=== PATIENT | female | born 1985 | race Two or more races ===

== ENCOUNTER 2016-12-10 12:20 | Emergency (ER) | payer MEDICAID, OTHER, SELFPAY ==
[~2016-12-10] VITALS: Ht 157.5 cm; Wt 58.7 kg
[~2016-12-10 12:20] MED LIST: ALPR0.254 PO; AMOX-367 PO; CHLO473M MM; GABA-826 PO; HYDR-3240 PO; MAGN400T26 PO; MIRT15TA6 PO; OMEP-110 PO; ONDA4TAB10 PO; OXYC10TA32 PO; OXYC5TAB3 PO; PHOS250T3 PO; PROC10TA78 PO; PROC25SU25 PR; SERT50TA5 PO; VANC125C2 PO; oxycontin PO
[2016-12-10] MEDS ORDERED: SODIUM CHLORIDE 0.9% 1,000 ML IV ONE (12:48)
[2016-12-10] MEDS ORDERED: ONDANSETRON 2MG/ML, 2ML ONE (12:54)
[2016-12-10] MEDS ORDERED: MORPHINE SULFATE 4 MG/ML, 1ML ONE ×2 (12:54→13:22)
[2016-12-10] MEDS: MORPHINE SULFATE 4 MG/ML, 1ML IVPush PRN ×2 (12:57→13:24)
[2016-12-10] MEDS ORDERED: ONDANSETRON 2MG/ML, 2ML IVPush ONE (13:00)
[2016-12-10] MEDS ORDERED: SODIUM CHLORIDE FLUSH 10ML SYR IVF ONE (13:00)
[2016-12-10] MEDS ORDERED: SODIUM CHLORIDE 0.9% 1,000ML IVBOLUS ONE (13:00)
[2016-12-10 13:13] LABS: PATH.CAST-FLAG NOT PRESENT; SPERM-FLAG NOT PRESENT; SRC-FLAG NOT PRESENT; XTAL-FLAG NOT PRESENT; YLC-FLAG NOT PRESENT
[2016-12-10 13:21] LABS: HEMATOCRIT 36.2 % (34.6-47.8); HEMOGLOBIN 11.6 g/dL (11.7-16.4); WHITE BLOOD COUNT 6.4 x10^3/uL (3.4-10)
[2016-12-10] MEDS ORDERED: chemo (13:26)
[2016-12-10 13:33] LABS: BLOOD UREA NITROGEN 4 mg/dL (7-18)
[2016-12-10 13:41] LABS: ASPARTATE AMINO TRANSFERASE 17 U/L (15-37)
[2016-12-10] MEDS ORDERED: OMNIPAQUE 350 MG/ML, 100ML BOTTLE ONE (14:13)
[2016-12-10] MEDS ORDERED: HYDROmorphone 1 MG/ML, 1ML ONE (14:48)
[2016-12-10] MEDS ORDERED: HYDROmorphone 1 MG/ML, 1ML IVPush PRN (15:00)
[2016-12-10 15:21] VITALS: BP 114/82
== END 2016-12-10 15:23 | disposition home or self-care (01) ==
LOC: ED 13:48
DX: N83.202 Unspecified ovarian cyst, left side (principal); C91.01 Acute lymphoblastic leukemia, in remission; K20.9 Esophagitis, unspecified; D69.6 Thrombocytopenia, unspecified
CPT/HCPCS: 36415; 74177; 80053; 81001; 82010; 83605; 83690; 84703; 85025; 85610; 85730; 87040; 87086; 96374; 96375; 99285; J1170; J2405; J7030; Q9967

== ENCOUNTER 2016-12-15 09:19 | Inpatient (IN) | payer MEDICAID, OTHER ==
[~2016-12-15] VITALS: Ht 157.5 cm; Wt 58.8 kg
[~2016-12-15 09:19] MED LIST changes: -OXYC10TA32 PO; +OXYC10TA47 PO; +chemo
[2016-12-15] MEDS ORDERED: SODIUM CHLORIDE 0.9% 1,000 ML IV ONE ×2 (10:18→11:40)
[2016-12-15] MEDS ORDERED: SODIUM CHLORIDE 0.9% 1,000ML IVBOLUS ONE (10:30)
[2016-12-15] MEDS ORDERED: ONDANSETRON 2MG/ML, 2ML IVPush ONE (10:30)
[2016-12-15] MEDS ORDERED: SODIUM CHLORIDE FLUSH 10ML SYR IVF ONE (10:30)
[2016-12-15] MEDS ORDERED: DIPHENHYDRAMINE 50 MG/ML, 1ML IVPush ONE (10:30)
[2016-12-15] MEDS ORDERED: HYDROmorphone 1 MG/ML, 1ML ONE ×3 (10:31→13:33)
[2016-12-15] MEDS ORDERED: DIPHENHYDRAMINE 50 MG/ML, 1ML ONE (10:32)
[2016-12-15] MEDS ORDERED: ONDANSETRON 2MG/ML, 2ML ONE (10:32)
[2016-12-15] MEDS: HYDROmorphone 1 MG/ML, 1ML IVPush PRN ×2 (10:40→11:16)
[2016-12-15 10:42] LABS: HEMATOCRIT 40.6 % (34.6-47.8); HEMOGLOBIN 13.2 g/dL (11.7-16.4); WHITE BLOOD COUNT 8.1 x10^3/uL (3.4-10)
[2016-12-15 10:54] LABS: ASPARTATE AMINO TRANSFERASE 19 U/L (15-37); BLOOD UREA NITROGEN 10 mg/dL (7-18)
[2016-12-15 10:58] LABS: DIFF TOTAL CELLS COUNTED 100 CELL DIFF
[2016-12-15 11:31] LABS: VERIFY COUNTS? YES
[2016-12-15 11:32] LABS: ANISOCYTOSIS 1+; POLYCHROMASIA 1+
[2016-12-15] MEDS ORDERED: SODIUM CHLORIDE FLUSH 10ML SYR IVF PRN (12:00)
[2016-12-15] MEDS ORDERED: DOCUSATE 100 MG CAPSULE PO PRN (13:00)
[2016-12-15] MEDS ORDERED: ACETAMINOPHEN 325 MG TABLET PO PRN (13:00)
[2016-12-15] MEDS ORDERED: PROMETHAZINE 12.5 MG SUPP PR PRN (13:00)
[2016-12-15] MEDS ORDERED: LORazepam 2 MG/ML, 1ML IVPush PRN (13:00)
[2016-12-15] MEDS ORDERED: ONDANSETRON 2MG/ML, 2ML IVPush PRN (13:00)
[2016-12-15] MEDS ORDERED: ONDANSETRON ODT 4 MG PO PRN (13:00)
[2016-12-15] MEDS: HYDROmorphone 2 MG/ML, 1ML IVPush PRN ×4 (13:34→23:48)
[2016-12-15] MEDS ORDERED: OMNIPAQUE 350 MG/ML, 75ML BOTTLE ONE (13:57)
[2016-12-15] MEDS: SODIUM CHLORIDE 0.9% 1,000 ML IV SCH ×2 (15:55→23:48)
[2016-12-15] MEDS: ENOXAPARIN 40 MG/0.4 ML SQ SCH (17:33)
[2016-12-15 17:41] VITALS: BP 110/71
[2016-12-15] MEDS: DIPHENHYDRAMINE 50 MG/ML, 1ML IVPush PRN (18:17)
[2016-12-15 19:43] VITALS: BP 114/57
[2016-12-16] MEDS: DIPHENHYDRAMINE 50 MG/ML, 1ML IVPush PRN (00:51)
[2016-12-16] MEDS: HYDROmorphone 2 MG/ML, 1ML IVPush PRN ×2 (02:57→06:28)
[2016-12-16 02:59] VITALS: BP 113/76
[2016-12-16 04:36] LABS: ASPARTATE AMINO TRANSFERASE 20 U/L (15-37); BLOOD UREA NITROGEN 5 mg/dL (7-18)
[2016-12-16 04:43] LABS: HEMATOCRIT 32.5 % (34.6-47.8); HEMOGLOBIN 10.5 g/dL (11.7-16.4); WHITE BLOOD COUNT 6.8 x10^3/uL (3.4-10)
[2016-12-16 05:40] LABS: DIFF TOTAL CELLS COUNTED 100 CELL DIFF
[2016-12-16 05:44] LABS: VERIFY COUNTS? YES
[2016-12-16 05:45] LABS: ANISOCYTOSIS 1+; POLYCHROMASIA 1+
[2016-12-16] MEDS: SODIUM CHLORIDE 0.9% 1,000 ML IV SCH (06:28)
[2016-12-16 07:58] VITALS: BP 122/66
[2016-12-16] MEDS: D5%-0.45% NACL 1,000 ML IV SCH ×3 (09:45→20:26)
[2016-12-16] MEDS: DIPHENHYDRAMINE 12.5MG/5ML, 10ML UDC PO PRN ×2 (09:45→17:17)
[2016-12-16] MEDS: OXYcodone IR 5MG TABLET PO PRN ×2 (10:46→21:48)
[2016-12-16] MEDS ORDERED: LIDOCAINE 1%, 20ML ONE (12:31)
[2016-12-16] MEDS: ENOXAPARIN 40 MG/0.4 ML SQ SCH (13:00)
[2016-12-16] MEDS ORDERED: VISIPAQUE 270 MG/ML, 50ML BOTTLE ONE (13:40)
[2016-12-16 15:35] VITALS: BP 110/63
[2016-12-16] MEDS: HYDROmorphone 1 MG/ML, 1ML IVPush PRN ×2 (15:39→20:26)
[2016-12-16 19:25] VITALS: BP 103/67
[2016-12-17] MEDS: HYDROmorphone 1 MG/ML, 1ML IVPush PRN ×6 (00:15→22:02)
[2016-12-17 05:17] VITALS: BP 128/84
[2016-12-17] MEDS: D5%-0.45% NACL 1,000 ML IV SCH ×2 (05:21→13:25)
[2016-12-17 05:48] LABS: HEMATOCRIT 33.3 % (34.6-47.8); HEMOGLOBIN 11.1 g/dL (11.7-16.4); WHITE BLOOD COUNT 8.9 x10^3/uL (3.4-10)
[2016-12-17 05:55] LABS: BLOOD UREA NITROGEN 3 mg/dL (7-18)
[2016-12-17 06:57] LABS: DIFF TOTAL CELLS COUNTED 100 CELL DIFF
[2016-12-17 07:03] LABS: ANISOCYTOSIS 1+; POLYCHROMASIA 1+; VERIFY COUNTS? YES
[2016-12-17 07:04] LABS: POIKILOCYTOSIS 1+
[2016-12-17 07:15] VITALS: BP 95/65
[2016-12-17] MEDS ORDERED: POTASSIUM CHLORIDE 40 MEQ in SODIUM CHLORIDE 0.9% 500 ML IV ONE (10:00)
[2016-12-17] MEDS: OXYcodone IR 5MG TABLET PO PRN ×2 (10:31→20:18)
[2016-12-17] MEDS: ENOXAPARIN 40 MG/0.4 ML SQ SCH (13:25)
[2016-12-17 13:31] VITALS: BP 122/62
[2016-12-17] MEDS ORDERED: DIPHENHYDRAMINE 50 MG/ML, 1ML ONE (16:18)
[2016-12-17] MEDS: DIPHENHYDRAMINE 12.5MG/5ML, 10ML UDC PO PRN (16:23)
[2016-12-17 20:17] VITALS: BP 138/83
[2016-12-17] MEDS: DIPHENHYDRAMINE 50 MG/ML, 1ML IVPush PRN (23:40)
[2016-12-18 02:31] VITALS: BP 99/56
[2016-12-18] MEDS: HYDROmorphone 1 MG/ML, 1ML IVPush PRN ×5 (02:35→22:16)
[2016-12-18] MEDS: D5%-0.45% NACL 1,000 ML IV SCH ×4 (02:35→22:54)
[2016-12-18 02:54] LABS: HEMATOCRIT 33.1 % (34.6-47.8); HEMOGLOBIN 10.7 g/dL (11.7-16.4); WHITE BLOOD COUNT 11.4 x10^3/uL (3.4-10)
[2016-12-18 03:05] LABS: BLOOD UREA NITROGEN 5 mg/dL (7-18)
[2016-12-18 03:31] LABS: DIFF TOTAL CELLS COUNTED 100 CELL DIFF
[2016-12-18 03:41] LABS: ANISOCYTOSIS 1+; VERIFY COUNTS? YES
[2016-12-18 03:42] LABS: POLYCHROMASIA 1+
[2016-12-18] MEDS: DIPHENHYDRAMINE 50 MG/ML, 1ML IVPush PRN ×3 (06:28→21:16)
[2016-12-18 07:48] VITALS: BP 110/76
[2016-12-18] MEDS: OXYcodone IR 5MG TABLET PO PRN (09:03)
[2016-12-18] MEDS ORDERED: POTASSIUM CHLORIDE 40 MEQ in SODIUM CHLORIDE 0.9% 500 ML IV ONE (10:30)
[2016-12-18] MEDS: ENOXAPARIN 40 MG/0.4 ML SQ SCH (13:21)
[2016-12-18] MEDS ORDERED: ONDANSETRON ODT 4 MG PO PRN (14:30)
[2016-12-18] MEDS ORDERED: DOCUSATE 100 MG CAPSULE PO PRN (14:30)
[2016-12-18] MEDS ORDERED: ACETAMINOPHEN 325 MG TABLET PO PRN (14:30)
[2016-12-18] MEDS ORDERED: ONDANSETRON 2MG/ML, 2ML IVPush PRN (14:30)
[2016-12-18 15:00] VITALS: BP 109/74
[2016-12-18 19:05] VITALS: BP 118/74
[2016-12-19 01:17] VITALS: BP 102/64
[2016-12-19] MEDS: HYDROmorphone 1 MG/ML, 1ML IVPush PRN ×6 (02:07→22:01)
[2016-12-19] MEDS: DIPHENHYDRAMINE 50 MG/ML, 1ML IVPush PRN ×3 (04:03→18:42)
[2016-12-19 04:38] LABS: HEMATOCRIT 33.5 % (34.6-47.8); WHITE BLOOD COUNT 17.6 x10^3/uL (3.4-10)
[2016-12-19 04:47] LABS: BLOOD UREA NITROGEN 3 mg/dL (7-18)
[2016-12-19 05:38] LABS: DIFF TOTAL CELLS COUNTED 100 CELL DIFF
[2016-12-19 05:45] LABS: ANISOCYTOSIS 1+; POLYCHROMASIA 1+; VERIFY COUNTS? YES
[2016-12-19 07:04] VITALS: BP 106/70
[2016-12-19 08:14] LABS: ASPARTATE AMINO TRANSFERASE 33 U/L (15-37)
[2016-12-19] MEDS: D5%-0.45% NACL 1,000 ML IV SCH ×2 (08:48→18:43)
[2016-12-19] MEDS: ENOXAPARIN 40 MG/0.4 ML SQ SCH (13:30)
[2016-12-19 13:43] VITALS: BP 114/83
[2016-12-19] MEDS: HYDROXYUREA 500 MG CAPSULE PO SCH ×2 (14:33→23:13)
[2016-12-19] MEDS: OXYcodone IR 5MG TABLET PO PRN (14:59)
[2016-12-19 19:46] VITALS: BP 119/74
[2016-12-20] MEDS: DIPHENHYDRAMINE 50 MG/ML, 1ML IVPush PRN ×4 (00:42→19:44)
[2016-12-20 01:20] VITALS: BP 122/81
[2016-12-20] MEDS: HYDROmorphone 1 MG/ML, 1ML IVPush PRN ×6 (02:13→22:53)
[2016-12-20] MEDS: D5%-0.45% NACL 1,000 ML IV SCH ×3 (02:15→22:56)
[2016-12-20 02:36] LABS: BLOOD UREA NITROGEN 12 mg/dL (7-18)
[2016-12-20 02:39] LABS: ASPARTATE AMINO TRANSFERASE 28 U/L (15-37)
[2016-12-20 03:39] LABS: HEMATOCRIT 32.9 % (34.6-47.8); HEMOGLOBIN 10.7 g/dL (11.7-16.4); WHITE BLOOD COUNT 28.3 x10^3/uL (3.4-10)
[2016-12-20] MEDS: OXYcodone IR 5MG TABLET PO PRN ×3 (03:47→16:34)
[2016-12-20 04:01] LABS: DIFF TOTAL CELLS COUNTED 100 CELL DIFF
[2016-12-20 04:03] LABS: ANISOCYTOSIS 1+; POLYCHROMASIA 1+
[2016-12-20 06:00] LABS: VERIFY COUNTS? YES
[2016-12-20 07:00] VITALS: BP 130/86
[2016-12-20] MEDS ORDERED: LIDOCAINE 1%, 20ML ONE (08:21)
[2016-12-20] MEDS ORDERED: MIDAZOLAM 1 MG/ML, 5ML ONE ×2 (08:39→08:43)
[2016-12-20] MEDS ORDERED: FENTANYL PF 100 MCG/2ML ONE ×2 (08:39→08:43)
[2016-12-20] MEDS: HYDROXYUREA 500 MG CAPSULE PO SCH ×2 (11:00→21:07)
[2016-12-20 12:50] VITALS: BP 116/80
[2016-12-20] MEDS: ENOXAPARIN 40 MG/0.4 ML SQ SCH (13:06)
[2016-12-20] MEDS ORDERED: CYCLOBENZAPRINE 10 MG TABLET PO PRN (16:00)
[2016-12-20 19:27] VITALS: BP 132/81
[2016-12-21] MEDS: DIPHENHYDRAMINE 50 MG/ML, 1ML IVPush PRN ×4 (01:52→20:58)
[2016-12-21 01:54] VITALS: BP 121/81
[2016-12-21] MEDS: HYDROmorphone 1 MG/ML, 1ML IVPush PRN ×5 (04:22→21:48)
[2016-12-21 04:32] LABS: HEMATOCRIT 33.5 % (34.6-47.8); HEMOGLOBIN 10.9 g/dL (11.7-16.4)
[2016-12-21 04:40] LABS: ASPARTATE AMINO TRANSFERASE 23 U/L (15-37); BLOOD UREA NITROGEN 9 mg/dL (7-18)
[2016-12-21 04:58] LABS: DIFF TOTAL CELLS COUNTED 100 CELL DIFF
[2016-12-21 05:11] LABS: ANISOCYTOSIS 1+; HYPOCHROMIA 1+; POLYCHROMASIA 1+
[2016-12-21] MEDS: OXYcodone IR 5MG TABLET PO PRN ×3 (05:24→19:35)
[2016-12-21 05:41] LABS: VERIFY COUNTS? YES
[2016-12-21 07:04] VITALS: BP 113/76
[2016-12-21] MEDS: D5%-0.45% NACL 1,000 ML IV SCH ×2 (09:26→19:35)
[2016-12-21] MEDS: HYDROXYUREA 500 MG CAPSULE PO SCH ×3 (09:29→20:58)
[2016-12-21 13:17] VITALS: BP 113/69
[2016-12-21] MEDS: ENOXAPARIN 40 MG/0.4 ML SQ SCH (14:33)
[2016-12-21] MEDS ORDERED: HYDROXYUREA 500 MG CAPSULE PO SCH (16:00)
[2016-12-21 18:53] VITALS: BP 126/73
[2016-12-22 01:19] VITALS: BP 130/85
[2016-12-22] MEDS: HYDROmorphone 1 MG/ML, 1ML IVPush PRN ×6 (01:27→22:37)
[2016-12-22] MEDS: DIPHENHYDRAMINE 50 MG/ML, 1ML IVPush PRN ×4 (03:01→21:01)
[2016-12-22 03:14] LABS: HEMATOCRIT 33.1 % (34.6-47.8); HEMOGLOBIN 10.8 g/dL (11.7-16.4); WHITE BLOOD COUNT 36.4 x10^3/uL (3.4-10)
[2016-12-22 03:57] LABS: DIFF TOTAL CELLS COUNTED 100 CELL DIFF
[2016-12-22 04:00] LABS: ANISOCYTOSIS 1+; VERIFY COUNTS? YES
[2016-12-22 04:01] LABS: POLYCHROMASIA 1+
[2016-12-22] MEDS: D5%-0.45% NACL 1,000 ML IV SCH ×3 (04:50→21:53)
[2016-12-22 08:17] VITALS: BP 128/82
[2016-12-22] MEDS: HYDROXYUREA 500 MG CAPSULE PO SCH ×3 (08:18→21:37)
[2016-12-22] MEDS: OXYcodone IR 5MG TABLET PO PRN ×3 (08:19→21:53)
[2016-12-22] MEDS: ENOXAPARIN 40 MG/0.4 ML SQ SCH (13:06)
[2016-12-22 13:08] VITALS: BP 106/69
[2016-12-22 13:52] LABS: BLOOD UREA NITROGEN 11 mg/dL (7-18)
[2016-12-22 13:56] LABS: ASPARTATE AMINO TRANSFERASE 19 U/L (15-37)
[2016-12-22 18:33] VITALS: BP 119/77
[2016-12-23 02:24] VITALS: BP 136/90
[2016-12-23] MEDS: DIPHENHYDRAMINE 50 MG/ML, 1ML IVPush PRN ×4 (02:26→22:12)
[2016-12-23] MEDS: OXYcodone IR 5MG TABLET PO PRN ×3 (02:27→22:12)
[2016-12-23] MEDS: HYDROmorphone 1 MG/ML, 1ML IVPush PRN ×5 (03:33→19:59)
[2016-12-23 03:47] LABS: HEMATOCRIT 28.7 % (34.6-47.8); HEMOGLOBIN 9.3 g/dL (11.7-16.4); WHITE BLOOD COUNT 23.8 x10^3/uL (3.4-10)
[2016-12-23 04:21] LABS: DIFF TOTAL CELLS COUNTED 100 CELL DIFF
[2016-12-23 04:27] LABS: ANISOCYTOSIS 1+; VERIFY COUNTS? YES
[2016-12-23 04:28] LABS: POLYCHROMASIA 1+
[2016-12-23 04:29] LABS: OVALOCYTES 1+
[2016-12-23 05:31] LABS: BLOOD UREA NITROGEN 9 mg/dL (7-18)
[2016-12-23 05:32] LABS: ASPARTATE AMINO TRANSFERASE 18 U/L (15-37)
[2016-12-23 07:57] VITALS: BP 124/83
[2016-12-23] MEDS: D5%-0.45% NACL 1,000 ML IV SCH (08:00)
[2016-12-23] MEDS ORDERED: POTASSIUM CHLORIDE 40 MEQ in SODIUM CHLORIDE 0.9% 500 ML IV ONE (09:30)
[2016-12-23] MEDS: HYDROXYUREA 500 MG CAPSULE PO SCH ×3 (09:49→22:28)
[2016-12-23] MEDS: ENOXAPARIN 40 MG/0.4 ML SQ SCH (12:30)
[2016-12-23 14:00] VITALS: BP 119/83
[2016-12-23 19:01] VITALS: BP 115/74
[2016-12-24 01:00] VITALS: BP 125/74
[2016-12-24] MEDS: HYDROmorphone 1 MG/ML, 1ML IVPush PRN ×5 (01:08→20:06)
[2016-12-24] MEDS: DIPHENHYDRAMINE 50 MG/ML, 1ML IVPush PRN ×4 (04:00→23:27)
[2016-12-24 04:25] LABS: HEMATOCRIT 31.6 % (34.6-47.8); HEMOGLOBIN 10.5 g/dL (11.7-16.4); WHITE BLOOD COUNT 13.8 x10^3/uL (3.4-10)
[2016-12-24 04:34] LABS: BLOOD UREA NITROGEN 10 mg/dL (7-18)
[2016-12-24 04:37] LABS: ASPARTATE AMINO TRANSFERASE 21 U/L (15-37)
[2016-12-24 05:38] LABS: DIFF TOTAL CELLS COUNTED 100 CELL DIFF
[2016-12-24 06:33] LABS: ANISOCYTOSIS 1+; POLYCHROMASIA 1+; VERIFY COUNTS? YES
[2016-12-24 06:34] LABS: HYPOCHROMIA 1+
[2016-12-24 08:15] VITALS: BP 113/73
[2016-12-24] MEDS: HYDROXYUREA 500 MG CAPSULE PO SCH ×3 (08:27→20:52)
[2016-12-24] MEDS: ENOXAPARIN 40 MG/0.4 ML SQ SCH (13:12)
[2016-12-24 13:15] VITALS: BP 116/77
[2016-12-24 18:43] VITALS: BP 105/69
[2016-12-25 00:56] VITALS: BP 116/84
[2016-12-25] MEDS: HYDROmorphone 1 MG/ML, 1ML IVPush PRN ×6 (01:02→22:01)
[2016-12-25] MEDS: OXYcodone IR 5MG TABLET PO PRN (04:21)
[2016-12-25 04:41] LABS: ASPARTATE AMINO TRANSFERASE 23 U/L (15-37); BLOOD UREA NITROGEN 24 mg/dL (7-18)
[2016-12-25 04:50] LABS: HEMATOCRIT 35.7 % (34.6-47.8); HEMOGLOBIN 11.8 g/dL (11.7-16.4); WHITE BLOOD COUNT 9.5 x10^3/uL (3.4-10)
[2016-12-25 05:53] LABS: DIFF TOTAL CELLS COUNTED 100 CELL DIFF
[2016-12-25 05:56] LABS: ANISOCYTOSIS 1+; POLYCHROMASIA 1+; VERIFY COUNTS? YES
[2016-12-25 07:21] VITALS: BP 92/59
[2016-12-25] MEDS: HYDROXYUREA 500 MG CAPSULE PO SCH ×3 (09:17→21:55)
[2016-12-25] MEDS: DIPHENHYDRAMINE 50 MG/ML, 1ML IVPush PRN ×2 (11:56→19:51)
[2016-12-25 13:31] VITALS: BP 95/63
[2016-12-25] MEDS: ENOXAPARIN 40 MG/0.4 ML SQ SCH (13:58)
[2016-12-25] MEDS ORDERED: DOCUSATE 100 MG CAPSULE PO PRN (19:00)
[2016-12-25] MEDS ORDERED: DIPHENHYDRAMINE 12.5MG/5ML, 10ML UDC PO PRN (19:00)
[2016-12-25] MEDS ORDERED: ONDANSETRON ODT 4 MG PO PRN (19:00)
[2016-12-25] MEDS ORDERED: ONDANSETRON 2MG/ML, 2ML IVPush PRN (19:00)
[2016-12-25] MEDS ORDERED: ACETAMINOPHEN 325 MG TABLET PO PRN (19:00)
[2016-12-25 19:21] VITALS: BP 113/78
[2016-12-26 00:31] VITALS: BP 102/68
[2016-12-26] MEDS: OXYcodone IR 5MG TABLET PO PRN ×3 (00:40→19:59)
[2016-12-26] MEDS: HYDROmorphone 1 MG/ML, 1ML IVPush PRN ×4 (03:43→21:57)
[2016-12-26 04:13] LABS: HEMATOCRIT 35.9 % (34.6-47.8); HEMOGLOBIN 11.7 g/dL (11.7-16.4); WHITE BLOOD COUNT 5.3 x10^3/uL (3.4-10)
[2016-12-26 04:20] LABS: BLOOD UREA NITROGEN 17 mg/dL (7-18)
[2016-12-26 04:23] LABS: ASPARTATE AMINO TRANSFERASE 18 U/L (15-37)
[2016-12-26 05:44] LABS: DIFF TOTAL CELLS COUNTED 100 CELL DIFF
[2016-12-26 05:47] LABS: ANISOCYTOSIS 1+; POLYCHROMASIA 1+; VERIFY COUNTS? YES
[2016-12-26 07:33] VITALS: BP 93/57
[2016-12-26] MEDS: HYDROXYUREA 500 MG CAPSULE PO SCH ×2 (08:47→17:53)
[2016-12-26] MEDS: FAMOTIDINE 20 MG TABLET PO SCH ×2 (08:48→19:59)
[2016-12-26] MEDS: ENOXAPARIN 40 MG/0.4 ML SQ SCH (12:27)
[2016-12-26 13:12] VITALS: BP 125/74
[2016-12-26 19:08] VITALS: BP 98/67
[2016-12-27 03:12] VITALS: BP 103/69
[2016-12-27] MEDS: HYDROmorphone 1 MG/ML, 1ML IVPush PRN ×5 (03:27→21:24)
[2016-12-27 03:46] LABS: HEMATOCRIT 34.6 % (34.6-47.8); HEMOGLOBIN 11.4 g/dL (11.7-16.4); WHITE BLOOD COUNT 3.8 x10^3/uL (3.4-10)
[2016-12-27 03:54] LABS: ASPARTATE AMINO TRANSFERASE 20 U/L (15-37); BLOOD UREA NITROGEN 20 mg/dL (7-18)
[2016-12-27 04:02] LABS: DIFF TOTAL CELLS COUNTED 100 CELL DIFF
[2016-12-27 04:14] LABS: VERIFY COUNTS? YES
[2016-12-27 04:15] LABS: ANISOCYTOSIS 1+; POLYCHROMASIA 1+
[2016-12-27 04:16] LABS: OVALOCYTES 1+
[2016-12-27 07:24] VITALS: BP 96/61
[2016-12-27] MEDS: FAMOTIDINE 20 MG TABLET PO SCH ×2 (08:23→21:24)
[2016-12-27] MEDS: HYDROXYUREA 500 MG CAPSULE PO SCH ×2 (08:23→10:44)
[2016-12-27] MEDS: OXYcodone IR 5MG TABLET PO PRN ×2 (11:06→22:19)
[2016-12-27] MEDS: ENOXAPARIN 40 MG/0.4 ML SQ SCH (12:51)
[2016-12-27 13:27] VITALS: BP 123/72
[2016-12-27 19:21] VITALS: BP 114/69
[2016-12-28 08:19] LABS: ASPARTATE AMINO TRANSFERASE 18 U/L (15-37); BLOOD UREA NITROGEN 14 mg/dL (7-18)
[2016-12-28 08:24] LABS: HEMATOCRIT 33.8 % (34.6-47.8); HEMOGLOBIN 11.2 g/dL (11.7-16.4); WHITE BLOOD COUNT 5.4 x10^3/uL (3.4-10)
[2016-12-28] MEDS: FAMOTIDINE 20 MG TABLET PO SCH ×2 (08:30→21:13)
[2016-12-28] MEDS: HYDROXYUREA 500 MG CAPSULE PO SCH ×2 (09:00→14:04)
[2016-12-28] MEDS: HYDROmorphone 1 MG/ML, 1ML IVPush PRN ×4 (09:37→23:09)
[2016-12-28 10:25] LABS: DIFF TOTAL CELLS COUNTED 100 CELL DIFF
[2016-12-28] MEDS: OXYcodone IR 5MG TABLET PO PRN ×2 (12:52→21:13)
[2016-12-28] MEDS: ENOXAPARIN 40 MG/0.4 ML SQ SCH (12:52)
[2016-12-28] MEDS: SODIUM CHLORIDE 0.9% 1,000 ML IV SCH ×2 (13:53→21:14)
[2016-12-28 14:03] VITALS: BP 99/61
[2016-12-28 14:20] LABS: ANISOCYTOSIS 1+; OVALOCYTES 1+; VERIFY COUNTS? YES
[2016-12-28] MEDS ORDERED: ONDANSETRON 2MG/ML, 2ML IV ONE (15:30)
[2016-12-28] MEDS ORDERED: [UNRECOGNIZED DRUG - OTHER] IV ONE (16:00)
[2016-12-28] MEDS ORDERED: SODIUM CHLORIDE 0.9% IV ONE (16:00)
[2016-12-28] MEDS: ALLOPURINOL 300 MG TABLET PO SCH (16:24)
[2016-12-28 20:00] VITALS: BP 112/70
[2016-12-28] MEDS ORDERED: FLUCONAZOLE 100 MG TABLET PO SCH (21:00)
[2016-12-28] MEDS ORDERED: LEVOFLOXACIN 500 MG TABLET PO SCH (21:00)
[2016-12-28] MEDS: ACYCLOVIR 200 MG CAPSULE PO SCH (21:14)
[2016-12-29 03:00] VITALS: BP 115/66
[2016-12-29] MEDS: SODIUM CHLORIDE 0.9% 1,000 ML IV SCH (05:07)
[2016-12-29] MEDS: HYDROmorphone 1 MG/ML, 1ML IVPush PRN (05:07)
[2016-12-29 07:40] VITALS: BP 115/71
[2016-12-29] MEDS: OXYcodone IR 5MG TABLET PO PRN ×2 (08:16→11:58)
[2016-12-29] MEDS: ACYCLOVIR 200 MG CAPSULE PO SCH (09:08)
[2016-12-29] MEDS: FAMOTIDINE 20 MG TABLET PO SCH (09:08)
[2016-12-29] MEDS: ALLOPURINOL 300 MG TABLET PO SCH (09:08)
[2016-12-29] MEDS ORDERED: PRED20TA PO (10:52)
[2016-12-29] MEDS ORDERED: ALPR0.254 PO (10:52)
[2016-12-29] MEDS ORDERED: ONDA4TAB13 PO (10:52)
[2016-12-29] MEDS ORDERED: ACYC-113 PO (10:52)
[2016-12-29] MEDS ORDERED: FLUC100T PO (10:52)
[2016-12-29] MEDS ORDERED: ALLO300T PO (10:52)
[2016-12-29] MEDS ORDERED: OXYC5TAB3 PO (10:52)
[2016-12-29] MEDS ORDERED: LEVO500T47 PO (11:48)
== END 2016-12-29 12:44 | disposition home or self-care (01) | DRG 835 ==
LOC: ED 10:51 → EDIP 11:40 → 3NW 15:37
PROVIDERS: ADMIT Internal Medicine; ATTEND Internal Medicine
PROC: 02HV33Z Insertion of Infusion Device into Superior Vena Cava, Percutaneous Approach (ICD-10-PCS; principal; 2016-12-16)
PROC: B5181ZA Fluoroscopy of Superior Vena Cava using Low Osmolar Contrast, Guidance (ICD-10-PCS; 2016-12-16)
PROC: 07DR3ZX Extraction of Iliac Bone Marrow, Percutaneous Approach, Diagnostic (ICD-10-PCS; 2016-12-20)
PROC: 3E04305 Introduction of Other Antineoplastic into Central Vein, Percutaneous Approach (ICD-10-PCS; 2016-12-21)
DX: C91.02 Acute lymphoblastic leukemia, in relapse (principal); E44.1 Mild protein-calorie malnutrition; K20.9 Esophagitis, unspecified; D64.9 Anemia, unspecified; D18.03 Hemangioma of intra-abdominal structures; E87.6 Hypokalemia; F32.9 Major depressive disorder, single episode, unspecified; D27.1 Benign neoplasm of left ovary; H53.8 Other visual disturbances; R73.9 Hyperglycemia, unspecified; T38.0X5A Adverse effect of glucocorticoids and synthetic analogues, initial encounter; Q99.9 Chromosomal abnormality, unspecified; Z68.23 Body mass index [BMI] 23.0-23.9, adult; Z52.3 Bone marrow donor; Z92.21 Personal history of antineoplastic chemotherapy; Z88.1 Allergy status to other antibiotic agents
CPT/HCPCS: 36415; 36569; 74177; 76937; 77001; 77012; 80048; 80053; 81003; 82010; 82140; 82962; 83605; 83615; 83690; 83735; 84550; 84703; 85025; 85097; 85610; 85730; 87040; 87046; 87324; 87328; 87329; 87899; 88237; 88264; 88280; 88305; 88311; 88313; 88341; 88342; 88360; 89055; 96361; 96374; 96375; 96376; 99156; 99157; G0364; J1170; J1650; J2250; J2405; J3010; J3480; J3490; Q0162; Q9966; Q9967; C1751; G0461; J1200; J2060; J7030; J7040; J7512